=== PATIENT | female | born 1970 | race Caucasian/White ===

== ENCOUNTER 2023-09-24 15:38 | Emergency (ER) | payer OTHER ==
[~2023-09-24] VITALS: Ht 152.4 cm; Wt 52.0 kg
[2023-09-24 15:42] VITALS: O2SAT 100
[2023-09-24 16:50] VITALS: BP 128/79; PULSE 71; RESP 16
== END 2023-09-24 17:24 | disposition home or self-care (01) ==
LOC: ER 15:38
DX: R55 Syncope and collapse (principal); I95.9 Hypotension, unspecified
CPT/HCPCS: 99281